=== PATIENT | female | born 1985 | race Caucasian/White ===

== ENCOUNTER 2022-06-23 09:38 | Emergency (ER) | payer OTHER ==
[~2022-06-23] VITALS: Ht 157.5 cm; Wt 92.5 kg
[2022-06-23 09:53] VITALS: BP 147/98
--- NOTE | 2022-06-23 11:49 | NUR ---
37/F PRESENTS TO ED WITH C/O LOWER ABDOMINAL CRAMPING X2 DAYS, STATES SHE WAS TOLD SHE HAD OVARIAN CYST LAST MONTH AND UNSURE IF PAIN IS RELATED. DENIES TAKING PAIN MEDS, REPORTS NAUSEA AND 2 EPISODES OF VOMITING TODAY, DENIES DIARRHEA, CP, SOB.
[2022-06-23 12:14] LABS: HEMATOCRIT 38.6 % (36-48); HEMOGLOBIN 12.9 g/dL (12.0-16.0); MEAN CORPUSCULAR HEMOGLOBIN 30 pg (27-31); MEAN CORPUSCULAR HGB CONC 34 g/dL (33-37); MEAN CORPUSCULAR VOLUME 90.1 fL (80-94); PLATELET COUNT (AUTO) 272 K/uL (140-450); RED BLOOD CELL COUNT(AUTO) 4.28 MIL/uL (4.20-5.40); WHITE BLOOD COUNT (AUTO) 15.6 K/uL (4.8-10.8)
[2022-06-23] MEDS: ONDANSETRON 4 MG ODT PO ONE (12:15)
[2022-06-23] MEDS: KETOROLAC 30 MG/ML VIAL IM ONE (12:15)
[2022-06-23 12:47] LABS: BASOPHILS % (MANUAL) 0 % (0-2); BLASTS, MANUAL % 0 % (0-0); EOSINOPHILS % (MANUAL) 0 % (0-4); LYMPHOCYTES % (MANUAL) 10 % (20-46); METAMYELOCYTES % 0 % (0-0); MONOCYTES % (MANUAL) 3 % (5-12); MYELOCYTES % 0 % (0-0); OTHER CELLS,MANUAL % 0 (0-0); PROMYELOCYTES % 0 % (0-0)
[2022-06-23 12:48] LABS: BUFFY COAT SMEAR PREP N
[2022-06-23 13:02] LABS: ALBUMIN 3.9 g/dL (3.4-5.0); ANION GAP 14.6 (8-16); CARBON DIOXIDE 21.8 mmol/L (21-32); CREATININE 0.7 mg/dL (0.6-1.3); POTASSIUM 4.4 mmol/L (3.5-5.1); TOTAL BILIRUBIN 0.5 mg/dL (0.0-1.0)
[2022-06-23] MEDS ORDERED: NAPR-54 PO (17:09)
[2022-06-23] MEDS ORDERED: ACET-8386 PO (17:09)
[2022-06-23 17:26] VITALS: BP 122/78
--- NOTE | 2022-06-23 17:26 | NUR ---
Patient discharged with v/s stable. Written and verbal after care instructions ABOUT OVARIAN CYST given and explained. Patient alert, oriented and verbalized understanding of instructions. Ambulatory with steady gait. All questions addressed prior to discharge. ID band removed. Patient advised to follow up with PMD. Rx of NAPROSYN AND NORCO 5-325 given. Patient educated on indication of medication including possible reaction and side effects. Opportunity to ask questions provided and answered. EDUCATED ABOUT USE OF NARCOTICS, ADVISED TO NOT DRINK OR DRIVE WHILE USING, VERBALIZED UNDERSTANDING
== END 2022-06-23 17:26 | disposition home or self-care (01) ==
LOC: MED 09:38
DX: R10.31 Right lower quadrant pain (principal); Z20.822 Contact with and (suspected) exposure to COVID-19
CPT/HCPCS: 36415; 74177; 76856; 80053; 81002; 81025; 83690; 85025; 87426; 93976; 96372; 99285; J1885; Q0092; Q9967